=== PATIENT | female | born 1980 ===

== ENCOUNTER 2020-06-16 08:38 | Day surgery (SDC) | payer OTHER ==
[~2020-06-16 08:38] MED LIST: Acetaminophen 1,000 MG in Premix Bag 1 BAG IV ONE; Dexamethasone 4 MG/ML 5 ML MDV ONE; Indocyanine Green 25 MG SDV ONE; Lactated Ringers 1,000 ML IV SCH; Lidocaine 2% 5 ML SDV ONE; Midazolam 1 MG/ML 2 ML SDV ONE; Ondansetron 4 MG/2 ML SDV ONE; Pregabalin 75 MG Cap PO SCH; Propofol 200 MG/20 ML SDV ONE; Rocuronium Bromide 50 MG/5 ML Syringe ONE; cefOXitin 2 GM in Premix Bag 1 BAG IV ONE; fentaNYL 250 MCG/5 ML SDV ONE
[2020-06-16] MEDS ORDERED: Pregabalin 75 MG Cap PO SCH (09:00)
[2020-06-16] MEDS ORDERED: Scopolamine 1.5 MG Transdermal Patch TRDERM PRN (09:22)
--- NOTE | 2020-06-16 09:22 | PCM.PREANE ---
Preanesthetic Assessment - Anesthesia/Transfusion/Family Hx Anesthesia History: Prior Anesthesia Without Reaction Family History of Anesthesia Reaction: No Transfusion History: No Prior Transfusion(s) Intubation History: Unknown - Review of Systems General: No Symptoms Pulmonary: No Symptoms Cardiovascular: No Symptoms Gastrointestinal: No Symptoms Neurological: No Symptoms Other: Reports: None - Physical Assessment Height: 5 ft 9 in Weight: 115.666 kg ASA Class: 2 Mental Status: Alert & Oriented x3 Airway Class: Mallampati = 1 Dentition: Reports: Normal Dentition, [place](s) (multiple on the back side) Thyro-Mental Finger Breadths: 3 Mouth Opening Finger Breadths: 3 ROM/Head Extension: Full Lungs: Clear to Auscultation, Normal Respiratory Effort Cardiovascular: Regular Rate, Regular Rhythm - Lab Values: Laboratory Last Values Urine HCG, Qual NEGATIVE (NEGATIVE) 06/16/20 08:50 - Allergies Allergies/Adverse Reactions: Allergies Allergy/AdvReac Type Severity Reaction Status Date / Time No Known Allergies Allergy Verified 06/10/20 08:50 - Blood Blood Available: No - Anesthesia Plan Pre-Op Medication Ordered: None - Acknowledgements Anesthesia Type Planned: General Anesthesia Pt an Appropriate Candidate for the Planned Anesthesia: Yes Alternatives and Risks of Anesthesia Discussed w Pt/Guardian: Yes Pt/Guardian Understands and Agrees with Anesthesia Plan: Yes PreAnesthesia Questionnaire HEENT History: Reports: Other (See Below) Other HEENT History: wears glasses Cardiovascular History: Reports: None Respiratory History: Reports: None Gastrointestinal History: Reports: Cholelithiasis, Other (See Below) Other Gastrointestinal History: symptomatic cholelithiasis Genitourinary History: Reports: Other (See Below) (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) LADLE WATCHER History: Reports: Musculoskeletal History: Reports: None Neurological History: Reports: None Psychiatric History: Reports: None Endocrine/Metabolic History: Reports: Obesity/BMI 30+ (BMI 37.7) Hematologic History: Reports: None Immunologic History: Reports: None Oncologic (Cancer) History: Reports: None Dermatologic History: Reports: None - Past Surgical History Head Surgeries/Procedures: Reports: None HEENT Surgical History: Reports: None Cardiovascular Surgical History: Reports: None Respiratory Surgical History: Reports: None GI Surgical History: Reports: None Female Surgical History: Reports: Nephrectomy Other Female Surgeries/Procedures: kidney donation procedure-left Endocrine Surgical History: Reports: None Neurological Surgical History: Reports: None Musculoskeletal Surgical History: Reports: None Oncologic Surgical History: Reports: None Dermatological Surgical History: Reports: None - SUBSTANCE USE Tobacco Use Status *Q: Never Tobacco User - HOME MEDS Home Medications: Home Meds . [No Known Home Meds] 05/13/20 [History] - CURRENT (IN HOUSE) MEDS Current Meds: Current Medications Lactated Ringer's (Ringers, Lactated) 1,000 mls @ 125 mls/hr IV ASDIRECTED MICHELE Pregabalin (Pregabalin 75 Mg Cap) 150 mg PO DAILY MICHELE Discontinued Medications Dexamethasone (Dexamethasone 4 Mg/Ml 5 Ml Mdv) Confirm Administered Dose 20 mg .ROUTE .STK-MED ONE Stop: 06/16/20 08:17 Fentanyl (Fentanyl 250 Mcg/5 Ml Sdv) Confirm Administered Dose 250 mcg .ROUTE .STK-MED ONE Stop: 06/16/20 08:17 Cefoxitin Sodium 2 gm/ Premix 50 mls @ 100 mls/hr IV ONETIME ONE Stop: 05/18/20 11:13 Acetaminophen 1,000 mg/ Premix 100 mls @ 400 mls/hr IV NOW ONE Stop: 05/18/20 10:58 Cefoxitin Sodium 2 gm/ Premix 50 mls @ 100 mls/hr IV ONETIME ONE Stop: 06/15/20 13:48 Acetaminophen 1,000 mg/ Premix 100 mls @ 400 mls/hr IV NOW ONE Stop: 06/15/20 13:35 Indocyanine Green (Indocyanine Green 25 Mg Sdv) 1 mg .XX NOW ONE Stop: 05/19/20 07:01 Lidocaine (Lidocaine 2% 5 Ml Sdv) Confirm Administered Dose 5 ml .ROUTE .STK-MED ONE Stop: 06/16/20 08:17 Midazolam HCl (Midazolam 1 Mg/Ml 2 Ml Sdv) Confirm Administered Dose 2 mg .ROUTE .STK-MED ONE Stop: 06/16/20 08:17 Ondansetron HCl (Ondansetron 4 Mg/2 Ml Sdv) Confirm Administered Dose 4 mg .ROUTE .STK-MED ONE Stop: 06/16/20 08:17 Pregabalin (Pregabalin 75 Mg Cap) 150 mg PO DAILY MICHELE Propofol (Propofol 200 Mg/20 Ml Sdv) Confirm Administered Dose 400 mg .ROUTE .STK-MED ONE Stop: 06/16/20 08:17 Rocuronium [place] (Rocuronium [place] 50 Mg/5 Ml Syringe) Confirm Administered Dose 50 mg .ROUTE .STK-MED ONE Stop: 06/16/20 08:17
[2020-06-16] MEDS ORDERED: Octyl 2-Cyanoacrylate 1 Tube ONE (09:29)
[2020-06-16] MEDS ORDERED: Bupivacaine 25%/EPINEPHrine/PF 30 ML ONE (09:30)
[2020-06-16] MEDS ORDERED: cefOXitin 100 ML ONE (11:26)
[2020-06-16] MEDS ORDERED: Ketamine 500 mg/10 ML MDV ONE (11:49)
[2020-06-16] MEDS ORDERED: fentaNYL 100 MCG/2 ML SDV IVPUSH PRN (12:09)
[2020-06-16] MEDS ORDERED: Propofol 200 MG/20 ML SDV ONE (12:16)
[2020-06-16] MEDS ORDERED: Glycopyrrolate 0.2 MG/ML SDV ONE ×2 (12:19)
[2020-06-16] MEDS ORDERED: Ketorolac 30 MG/ML SDV ONE (12:19)
[2020-06-16] MEDS ORDERED: HYDROmorphone 2 MG/ML Syringe ONE (12:33)
--- NOTE | 2020-06-16 13:11 | PCM.OPNOTE ---
- General Post-Op/Procedure Note Date of Surgery/Procedure: 06/16/20 Operative Procedure(s): laparoscopic cholecystectomy Findings: chronic cholecystitis dictation number [id number] Pre Op Diagnosis: symptomatic cholelithiasis Post-Op Diagnosis: symptomatic cholelithiases. chronic cholecystitis Anesthesia Technique: General ET Tube Primary Surgeon: Junior Espinoza Pathology: gallbladder EBL in mLs: 10 Complications: None Condition: Good
--- NOTE | 2020-06-16 14:30 | PCM.POSTAN ---
POST ANESTHESIA ASSESSMENT - MENTAL STATUS Mental Status: Alert, Oriented - VITAL SIGNS Vital Signs: Last Vital Signs Temp 36.4 C 06/16/20 14:10 Pulse 80 06/16/20 14:10 Resp 14 06/16/20 14:10 BP 114/70 06/16/20 14:10 Pulse Ox 95 06/16/20 14:10 - RESPIRATORY Respiratory Status: Respiratory Rate WNL, Airway Patent, O2 Saturation Stable - CARDIOVASCULAR CV Status: Pulse Rate WNL, Blood Pressure Stable - GASTROINTESTINAL GI Status: No Symptoms - PAIN Pain Score: 0 - POST OP HYDRATION Hydration Status: Adequate & Stable - OBSERVATIONS Free Text/Narrative:: No anesthesia problems
--- NOTE | 2020-06-16 15:21 | PCM48HPAN ---
Post Anesthesia Note - EVALUATION WITHIN 48HRS OF ANESTHETIC Vital Signs in Normal Range: Yes Patient Participated in Evaluation: Yes Respiratory Function Stable: Yes Airway Patent: Yes Cardiovascular Function Stable: Yes Hydration Status Stable: Yes Pain Control Satisfactory: Yes Nausea and Vomiting Control Satisfactory: Yes Mental Status Recovered: Yes Vital Signs: Last Vital Signs Temp 36.4 C 06/16/20 14:10 Pulse 70 06/16/20 14:40 Resp 14 06/16/20 14:40 BP 105/65 06/16/20 14:40 Pulse Ox 95 06/16/20 14:40
--- NOTE | 2020-06-16 22:51 | OR ---
SURGEON: MARTINEZ ROSE MD DATE OF PROCEDURE: 06/16/2020 PREOPERATIVE DIAGNOSIS: Symptomatic cholelithiasis. POSTOPERATIVE DIAGNOSIS: Symptomatic cholelithiasis with chronic cholecystitis. PROCEDURE PERFORMED: Laparoscopic cholecystectomy. PRIMARY SURGEON: Martinez Rose MD MANIFEST/ORDER ORGANIZER PRINT ORDERS: Kobi Hammonds, PGY2 [facility] care program resident. ANESTHESIA: General. ESTIMATED BLOOD LOSS: 10 mL. SPECIMEN: Gallbladder. REASON FOR PROCEDURE: Patient is a pleasant 39-year-old female who has been having recurrent episodes of biliary colic. She did have ultrasound that shows some gallstones. She has also had some nausea and vomiting when she had these episodes after eating greasy food. I did go over with the patient risks, goals, and alternatives of the procedure. Risks include, but not limited to, bleeding, infection, bile leak, injury to nearby structures such as common bile duct or duodenum, hernia formation, need to convert to open, change in bowel habits. Patient understands and wishes proceed. DESCRIPTION OF PROCEDURE: The patient was brought back to the OR. She was prepped and draped in the usual sterile fashion. SCDs were placed. Preoperative antibiotics were given and anesthesia was provided by the Anesthesia Team. After time-out was performed, an infraumbilical incision was made. It was made down to the fascia which was entered with the open Inderjit technique. Inderjit trocar was placed. Pneumoperitoneum was established. Abdomen was inspected. No entry injury was seen. Now, 3 more 5 mm trocars were placed, one in the mid epigastric, one in the right upper quadrant, one in the right lower quadrant, all under direct visualization. The fundus of the gallbladder was grasped and elevated. The patient was put in a head up position and airplaned towards myself. The patient did have some scar tissue of the omentum and a little bit of the duodenum up to the gallbladder, which was gently taken down. Now, the critical view was established. I did get a good view of the cystic duct and cystic artery. This was cleared out mainly with blunt dissection with the [place]. It did clear up the gallbladder wall for a slight distance. We did use Indocyanine green. It did show clear cystic duct at the junction with the common bile duct. We did give extra bolus, which showed light up of the cystic artery. Now the good critical view and all structures identified, the cystic duct and cystic artery were then clipped and transected. The gallbladder was taken off liver bed with Harmonic Scalpel and placed into an EndoCatch bag. The liver bed was again inspected. There were two spots with some slight bleeding that were cauterized with good hemostasis. The area was suctioned and irrigated out. There was good hemostasis. Both clips appeared to be in good position and still intact. Now, the 5 mm trocars were removed. The Inderjit trocar was removed along with the specimen. The umbilical incision had to be extended slightly to accommodate for this gallbladder stone. Now, the infraumbilical fascia was closed with [id number] Vicryl stitch and all the trocar sites were again injected with local and closed with 4-0 Monocryl and Dermabond. At the end of the case, sponge and needle counts were correct. The patient was transferred recovery room in stable condition. CAYDEN / SAURABH /[id number]
== END 2020-06-16 15:29 | disposition home or self-care (01) ==
LOC: MW.SDS 08:38 → MERGE 14:00 → MW.SDS 15:29
PROVIDERS: ATTEND Surgery
DX: K80.10 Calculus of gallbladder with chronic cholecystitis without obstruction (principal); E66.9 Obesity, unspecified; Z68.37 Body mass index [BMI] 37.0-37.9, adult; Z98.890 Other specified postprocedural states
CPT/HCPCS: 47562; 81025; A9270; J0694; J1100; J1170; J1885; J2250; J2405; J2704; J3010; J3490; J7120; 00790; 88304